=== PATIENT | male | born 1950 ===

== ENCOUNTER 2019-11-06 10:12 | Outpatient (CLI) | payer MEDICARE, OTHER, SELFPAY | END 2019-11-06 10:13 | disposition home or self-care (01) | LOC: WOUND 10:13 | PROVIDERS: Family Provider Internal Medicine; Visit Provider Thoracic Surgery (Cardiothoracic Vascular Surgery) | DX: T81.89XA Other complications of procedures, not elsewhere classified, initial encounter (principal); Y83.8 Other surgical procedures as the cause of abnormal reaction of the patient, or of later complication, without mention of misadventure at the time of the procedure | CPT/HCPCS: 11042; G0463 ==

== ENCOUNTER 2019-11-13 09:03 | Outpatient (CLI) | payer MEDICARE, OTHER, SELFPAY | END 2019-11-13 09:04 | disposition home or self-care (01) | LOC: WOUND 09:04 | PROVIDERS: Family Provider Internal Medicine; Visit Provider Thoracic Surgery (Cardiothoracic Vascular Surgery) | DX: T81.89XA Other complications of procedures, not elsewhere classified, initial encounter (principal); Y83.8 Other surgical procedures as the cause of abnormal reaction of the patient, or of later complication, without mention of misadventure at the time of the procedure | CPT/HCPCS: 99212 ==

== ENCOUNTER 2020-09-22 06:50 | Outpatient (CLI) | payer MEDICARE, OTHER, SELFPAY ==
--- NOTE | 2020-09-22 07:03 | US_ITS ---
WS: [id number] ULTRASOUND ABDOMEN LIMITED CLINICAL INFORMATION: CIRRHOSIS COMPARISON: None. FINDINGS: Liver Size: Normal. Craniocaudal length: 12.5 cm. Echogenicity: Coarse Surface nodularity: Cirrhotic Mass (size and location): None. Hepatopedal flow in the main portal vein. Patent stent in the right portal vein. Simple left hepatic cyst measuring 1.7 x 1.8 x1.6 cm Bile ducts Intrahepatic ducts: Normal. Common bile duct diameter: 0.8 cm. Gallbladder Gallbladder wall thickening with cholelithiasis. No pericholecystic fluid. Gallstones: Present Gallbladder sludge: None. Gallbladder wall thickening: Present, mild measuring 3.1 mm Pericholecystic fluid: None. Sonographic Merritt sign: Absent. Pancreas Not well visualized Right kidney: Normal. Hydronephrosis: None. Size: 10.3 cm x 4.8 cm x 4.2 cm. Abdominal aorta and IVC Visualized portions are normal. Ascites: None. US/US abdomen limited [id number] IMPRESSION: 1. Cirrhotic liver with patent right portal vein stent. 2. Gallbladder wall thickening with cholelithiasis. No pericholecystic fluid. Negative Merritt's sign. 3. Enlarged common bile duct measuring 8.4 mm. This can be further evaluated w ith MRCP. 4. No hydronephrosis in right kidney.
== END 2020-09-22 06:51 | disposition home or self-care (01) ==
LOC: RAD 06:55
PROVIDERS: PCP Internal Medicine; Visit Provider Internal Medicine Gastroenterology
DX: K70.30 Alcoholic cirrhosis of liver without ascites (principal)
CPT/HCPCS: 76705

== ENCOUNTER 2021-08-25 12:04 | Outpatient (CLI) | payer MEDICARE, OTHER, SELFPAY ==
--- NOTE | 2021-08-25 12:20 | US_ITS ---
WS: [id number] RIGHT UPPER QUADRANT ULTRASOUND HISTORY: ALCOHOLIC CIRRHOSIS OF LIVER COMPARISON: 09/22/2020 Liver: 13.1 cm in length. Liver is small caliber with coarse echotexture consistent with a history of cirrhosis. Surface of the liver is lobulated. No intrahepatic dilatation. Patient is status post TIP S procedure. The stent is identified coursing from the RIGHT portal vein towards the hepatic vein and IVC. The flow within the TIPS is forward extending towards the IVC and heart as expected. The veloci ty through the shunt is 100 cm/s which is normal. Normal undulation of waveform. Stable cyst within t he liver. Gallbladder: Normally distended with stones. Mild gallbladder wall thickening without acute fluid. CBD: 0.4 cm Pancreas: Tail is poorly visualized. Right kidney: 10.5 cm in length. Normal size and echogenicity. No hydronephrosis or mass. Aorta and IVC: Unremarkable abdominal aorta and IVC. No ascites. US/US abdomen limited [id number] IMPRESSION: 1. Normal patency of the TIPS with flow directed towards the IVC as expected. 2. Normal velocity within the TIPS. 3. Cholelithiasis without acute cholecystitis. 4. Cirrhosis.
== END 2021-08-25 12:05 | disposition home or self-care (01) ==
LOC: RAD 12:08
PROVIDERS: PCP Internal Medicine; Visit Provider Internal Medicine
DX: K70.30 Alcoholic cirrhosis of liver without ascites (principal); K80.20 Calculus of gallbladder without cholecystitis without obstruction
CPT/HCPCS: 76705